=== PATIENT | female | born 1980 | race Caucasian/White ===

== ENCOUNTER 2016-10-09 09:49 | Emergency (ER) | payer OTHER ==
[~2016-10-09 09:49] MED LIST: B COMPLETE1 EACH PO; COLACE100 MG PO; DAILY VITAMIN1 EAC5 PO; DHEA PO; IBUPROFEN800 MG; IBUPROFEN800 MG PO; MACROBID 100 M100 MG PO; MIRALAX17 G1 PO; MIRALAX17 G2 PO; MONONESSA1 TAB PO; MULTIVITAMIN1 TAB PO; NASONEX17 G1; PRENATAL1 TAB PO; PROGESTERONE PO; PROTONIX40 MG PO; SENNA8.6 MG; TYLENOL325 MG PO; VITAMIN D31000 UNI3 PO
[2016-10-09] MEDS ORDERED: PREDNISONE10 M1 PO (10:05)
[2016-10-09] MEDS ORDERED: RESTORIL7.5 MG/CAP PO (10:06)
[2016-10-09] MEDS ORDERED: PROGESTERONE PO (10:07)
[2016-10-09] MEDS ORDERED: MOBIC7.5 M2 PO (10:09)
[2016-10-09 10:33] LABS: BASO % 0.4 % (0-2); EOS % 1.1 % (0-7); EOSINOPHIL ABSOLUTE COUNT 0.1 tho/cmm (0.0-0.7); HCT-HEMATOCRIT 38.9 % (34.0-49.0); HGB-HEMOGLOBIN 13.6 gm/dl (12.0-15.5); IMMATURE GRANULOCYTES ABSOLUTE 0.03 tho/cmm (0-0.03); IMMATURE GRANULOCYTES PERCENT 0.3 % (0-0.3); LYMPH % 10.2 % (20-45); MCH (MEAN CORPUSCULAR HGB) 30.4 pg (28.0-32.0); MCV (MEAN CELL VOLUME) 86.8 fl (82.0-96.0); MEAN PLATELET VOLUME 9.5 cmc (9.4-12.4); MONO % 6.5 % (0-12); MONOCYTE ABSOLUTE COUNT 0.6 tho/cmm (0.0-1.2); NEUTROPHIL ABSOLUTE COUNT 7.9 tho/cmm (1.6-8.0); NEUTROPHIL-AUTOMATED 7.9 tho/cmm (1.6-8.0); NEUTROPHILS % 81.5 % (40-80); PLATELET COUNT 268 tho/cmm (150-450); RED BLOOD COUNT 4.48 mil/cmm (4.00-5.20); RED CELL DISTRIBUTION WIDTH 12.6 % (12.4-16.4); WHITE BLOOD COUNT 9.7 tho/cmm (4.0-10.0)
[2016-10-09 10:49] LABS: PREGNANCY-SERUM NEGATIVE (NEGATIVE)
[2016-10-09 11:02] LABS: ALB/GLOB RATIO 1.3 (0.8-2.0); ALBUMIN 4.1 g/dl (3.5-5.0); ALKALINE PHOSPHATASE 57 U/L (33-138); ALT/SGPT 24 U/L (12-78); ANION GAP 11 mmol/L (0-20); AST/SGOT 23 U/L (10-40); BILIRUBIN,TOTAL 0.5 mg/dl (0-1.5); BLOOD UREA NITROGEN 19 mg/dl (6-24); CALCIUM 8.3 mg/dl (8.5-10.5); CARBON DIOXIDE-VENOUS 27 mmol/L (22-32); CHLORIDE 104 mmol/l (96-110); CREATININE 0.85 mg/dl (0.50-1.10); GLUCOSE 94 mg/dL (70-110); POTASSIUM 3.7 mmol/L (3.7-5.1); SODIUM 138 mmol/L (135-145); eGFR VALUE FOR BLACK >90 mL/Min
[2016-10-09 11:05] LABS: C-REACTIVE PROTEIN <0.3 mg/dl (0-0.9)
[2016-10-09 11:23] LABS: URINE BILIRUBIN NEGATIVE (NEG); URINE BLOOD NEGATIVE (NEG); URINE GLUCOSE (UA) NEGATIVE (NEG); URINE KETONE NEGATIVE (NEG); URINE LEUKOCYTE ESTERASE NEGATIVE (NEG); URINE NITRITE NEGATIVE (NEG); URINE PROTEIN NEGATIVE (NEG); URINE SPECIFIC GRAVITY 1.005 (1.003-1.030)
[2016-10-09 11:24] LABS: URINE APPEARANCE CLEAR; URINE COLOR PALE YELLOW
[2016-10-09 11:36] LABS: ESR-ERYTHROCYTE SED RATE 7 mm/hr (0-20)
[2016-10-09] MEDS ORDERED: ZOFRAN4 M2 PO (11:53)
[2016-11-04] MEDS ORDERED: ZOFRAN4 M2 PO (11:40)
[2016-11-04] MEDS ORDERED: LEVSIN-SL0.125 MG SL (11:41)
== END 2016-10-09 12:11 ==
LOC: EDMED 09:49
PROVIDERS: Emergency Medicine
DX: R51 Headache (principal); M54.5 Low back pain; M54.6 Pain in thoracic spine; Z98.890 Other specified postprocedural states
CPT/HCPCS: J1200; J1885; J2405; J7030

== ENCOUNTER 2016-11-07 12:32 | Day surgery (SDC) | payer OTHER ==
[~2016-11-07 12:32] MED LIST changes: +LEVSIN-SL0.125 MG SL; +MOBIC7.5 M2 PO; +PREDNISONE10 M1 PO; +RESTORIL7.5 MG/CAP PO; +ZOFRAN4 M2 PO
[2016-11-07 13:07] LABS: BASO % 0.6 % (0-2); EOSINOPHIL ABSOLUTE COUNT 0.1 tho/cmm (0.0-0.7); HCT-HEMATOCRIT 36.1 % (34.0-49.0); HGB-HEMOGLOBIN 12.7 gm/dl (12.0-15.5); IMMATURE GRANULOCYTES ABSOLUTE 0.01 tho/cmm (0-0.03); IMMATURE GRANULOCYTES PERCENT 0.1 % (0-0.3); LYMPH % 29.6 % (20-45); MCH (MEAN CORPUSCULAR HGB) 30.2 pg (28.0-32.0); MCHC MEAN CORPUSCULAR HGB CONC 35.2 % (32.0-36.0); MEAN PLATELET VOLUME 9.9 cmc (9.4-12.4); MONO % 7.9 % (0-12); MONOCYTE ABSOLUTE COUNT 0.5 tho/cmm (0.0-1.2); NEUTROPHIL ABSOLUTE COUNT 4.1 tho/cmm (1.6-8.0); NEUTROPHIL-AUTOMATED 4.1 tho/cmm (1.6-8.0); NEUTROPHILS % 60.8 % (40-80); PLATELET COUNT 272 tho/cmm (150-450); RED CELL DISTRIBUTION WIDTH 12.3 % (12.4-16.4); WHITE BLOOD COUNT 6.7 tho/cmm (4.0-10.0)
[2016-11-07 13:21] LABS: ALB/GLOB RATIO 1.4 (0.8-2.0); ALBUMIN 4.4 g/dl (3.5-5.0); ALKALINE PHOSPHATASE 53 U/L (33-138); ALT/SGPT 26 U/L (12-78); ANION GAP 13 mmol/L (0-20); AST/SGOT 18 U/L (10-40); BILIRUBIN,TOTAL 0.4 mg/dl (0-1.5); BLOOD UREA NITROGEN 11 mg/dl (6-24); CALCIUM 8.7 mg/dl (8.5-10.5); CARBON DIOXIDE-VENOUS 25 mmol/L (22-32); CHLORIDE 105 mmol/l (96-110); CREATININE 0.75 mg/dl (0.50-1.10); GLUCOSE 90 mg/dL (70-110); POTASSIUM 3.5 mmol/L (3.7-5.1); SODIUM 139 mmol/L (135-145); eGFR VALUE FOR BLACK >90 mL/Min
[2016-11-07 13:26] LABS: TSH-THYROID STIMULATING HORM. 1.92 uIU/ml (0.40-3.80)
[2016-11-07 13:43] LABS: ESR-ERYTHROCYTE SED RATE 9 mm/hr (0-20)
[2016-11-07 15:56] LABS: CSF APPEARANCE CLEAR (CLEAR); CSF COLOR COLORLESS (COLORLESS); CSF RBC CT 0 cmm (0); CSF TUBE NUMBER CSF TUBE 3; CSF WBC CT 2 cmm (0-10)
[2016-11-07 16:07] LABS: CSF GLUCOSE 47 mg/dl (40-75)
== END 2016-11-07 18:30 ==
LOC: SHSB 12:32
PROVIDERS: Psychiatry & Neurology Neurology
PROC: B01B1ZZ Fluoroscopy of Spinal Cord using Low Osmolar Contrast (ICD-10-PCS; principal; 2016-11-07)
PROC: 009U3ZX Drainage of Spinal Canal, Percutaneous Approach, Diagnostic (ICD-10-PCS; 2016-11-07)
DX: G44.89 Other headache syndrome (principal); Z79.1 Long term (current) use of non-steroidal anti-inflammatories (NSAID); Z79.899 Other long term (current) drug therapy; Z88.1 Allergy status to other antibiotic agents; Z88.2 Allergy status to sulfonamides; Z88.5 Allergy status to narcotic agent; Z82.0 Family history of epilepsy and other diseases of the nervous system; Z98.1 Arthrodesis status; Z98.890 Other specified postprocedural states
CPT/HCPCS: J7030; Q9967